=== PATIENT | male | born 1975 | race Caucasian/White ===

== ENCOUNTER 2017-08-21 17:13 | Emergency (ER) | payer OTHER ==
[2017-08-21 18:38] LABS: BASOPHILS 0.2 % (0-2); EOSINOPHILS 0.2 % (0-7); HEMATOCRIT 46.6 % (42.0-54.0); HEMOGLOBIN 15.8 g/dL (13.5-17.5); IMMATURE GRANULOCYTES 0.3 % (0-5); LYMPHOCYTES 9.3 % (15-50); MCH 29.6 pg (26.0-34.0); MCHC 33.9 g/dL (31.0-37.0); MCV 87.3 fL (80.0-100.0); MEAN PLATELET VOLUME 10.2 fL (7.4-10.4); MONOCYTES 3.9 % (2-11); NEUTROPHILS 86.1 % (40-80); PLATELET COUNT 272 10x3/uL (130-400); RBC 5.34 10x6/uL (4.20-6.10); RDW 12.9 % (11.5-14.5); WBC 11.9 10x3/uL (4.8-10.8)
[2017-08-21 19:00] LABS: ALBUMIN 3.8 g/dL (3.4-5.0); ALKALINE PHOSPHATASE 97 U/L (46-116); ALT (SGPT) 31 U/L (10-68); CALC OSMOLALITY 280 mosm/kg (275-300); CARBON DIOXIDE 24.6 mmol/L (21.0-32.0); CHLORIDE - SERUM 101 mmol/L (98-107); CREATININE - SERUM 0.9 mg/dL (0.6-1.3); GLUCOSE 183 mg/dL (74-106); POTASSIUM - SERUM 4.1 mmol/L (3.5-5.1); PROTEIN - SERUM 7.7 g/dL (6.4-8.2); SODIUM 138 mmol/L (136-145); UREA NITROGEN 13 mg/dL (7-18); eGFR NON AFRICAN AMERICAN > 90 mL/min (90-120)
[2017-08-21 19:04] LABS: TROPONIN-I < 0.017 ng/mL (0.000-0.060)
== END 2017-08-21 22:19 | disposition home or self-care (01) ==
LOC: D.ER 17:13
PROVIDERS: Physician Assistant Medical
DX: R42 Dizziness and giddiness (principal); E86.0 Dehydration; R73.9 Hyperglycemia, unspecified; I45.10 Unspecified right bundle-branch block